=== PATIENT | female | born 1985 | race African-American/Black ===

== ENCOUNTER 2017-07-20 03:25 | Emergency (ER) | payer SELFPAY ==
[~2017-07-20] VITALS: Ht 165.1 cm; Wt 96.0 kg
[2017-07-20 05:41] LABS: BASOPHILS % 0.3 % (0.0-2.0); HEMATOCRIT. 37.9 % (36.0-48.0); HEMOGLOBIN. 13.1 g/dL (12.0-16.0); LYMPHOCYTES % 13.4 % (20.0-50.0); MEAN PLATELET VOLUME 8.1 fl (7.4-10.4); MONOCYTES % 2.6 % (2.0-8.0); NEUTROPHILS % 83.7 % (40.0-76.0); PLATELET 329 x1000/uL (130-400); RED BLOOD CELL COUNT 5.05 mill/uL (4.2-5.4); RED CELL DISTRIBUTION WIDTH 14.2 % (11.6-14.6)
[2017-07-20 05:42] LABS: CHLORIDE 105 mEq/L (98-107)
[2017-07-20 05:43] LABS: CLARITY URINE CLOUDY (CLEAR); COLOR URINE YELLOW (YELLOW); KETONES URINE 1+ (NEGATIVE); LEUKOCYTE ESTERASE URINE NEGATIVE (NEGATIVE); NITRITE URINE NEGATIVE (NEGATIVE); OCCULT BLOOD URINE NEGATIVE (NEGATIVE); PH URINE >=9.0 (4.5-8.0); PROTEIN URINE TRACE (NEGATIVE); SPECIFIC GRAVITY URINE 1.023 (1.005-1.030); UROBILINOGEN URINE 0.2 E.U./dL (0.2-1.0)
[2017-07-20 05:48] LABS: PROTHROMBIN TIME 10.4 sec (9.4-11.6)
[2017-07-20] MEDS ORDERED: MAGNESIUM/ALUMINUM HYDROXIDE/SIMETHICONE 30ML UDC PO STA (06:40)
[2017-07-20] MEDS ORDERED: ONDANSETRON HCL 4MG/2ML VIAL IV STA (06:40)
[2017-07-20] MEDS ORDERED: SODIUM CHLORIDE 0.9% 1,000 ML IV ONE (06:40)
[2017-07-20] MEDS ORDERED: FAMOTIDINE 20MG/2ML VIAL IV STA (06:40)
[2017-07-20] MEDS ORDERED: METRONIDAZOLE 500MG TABLET PO ONE (07:45)
[2017-07-20 08:43] VITALS: BP 120/70
== END 2017-07-20 09:33 | disposition home or self-care (01) ==
LOC: ER 08:14 → CANBEDREQ 16:04
DX: N39.0 Urinary tract infection, site not specified (principal); A59.9 Trichomoniasis, unspecified; R73.9 Hyperglycemia, unspecified; R71.8 Other abnormality of red blood cells; F12.10 Cannabis abuse, uncomplicated
CPT/HCPCS: 36415; 71045; 80053; 81003; 81025; 83605; 83690; 85025; 85610; 87086; 96361; 96374; 96375; 99285; J2405; J3490; J7030; Z7610